=== PATIENT | female | born 1950 | race Two or more races ===

== ENCOUNTER 2019-12-28 09:59 | Emergency (ER) | payer OTHER ==
[~2019-12-28] VITALS: Ht 170.2 cm; Wt 108.9 kg
[2019-12-28] MEDS ORDERED: ACETAMINOPHEN 325 MG TAB PO ONE (10:15)
[2019-12-28 11:13] LABS: Basophils # (auto) 0.1 uL; Basophils % (auto) 0.9 % (0.0-2.0); Eosinophils # (auto) 0 uL; Hemoglobin 14.3 g/dL (12.2-16.2); Lymphocytes # (auto) 0.5 uL; Lymphocytes % (auto) 3.8 % (10.0-50.0); Mean Corpuscular Hemoglobin 28.4 pg (28.0-32.0); Mean Corpuscular Hgb Conc. 33.4 g/dL (32.0-36.0); Mean Corpuscular Volume 85.2 fL (80.0-100.0); Monocytes # (auto) 0.4 uL; Monocytes % (auto) 3.4 % (0.0-12.0); Neutrophils % (auto) 91.9 % (37.0-80.0); Nucleated Red Blood Cells % 0.1 %; Platelet Count (auto) 234 10^3/uL (140-450); Red Blood Cells 5.05 10^6/uL (4.0-5.20); Red Cell Distribution Width 16.2 % (11.8-14.3)
[2019-12-28 11:39] LABS: Albumin 3.5 g/dL (3.4-5.0); Anion Gap 11 (5-15); Blood Urea Nitrogen 23 mg/dL (7-18); Calcium 9.9 mg/dL (8.5-10.1); Carbon Dioxide 21 mmol/L (21-32); Chloride 106 mmol/L (98-107); Glucose 139 mg/dL (74-106); Potassium 4.4 mmol/L (3.5-5.1); Sodium 138 mmol/L (136-145)
[2019-12-28 11:45] LABS: Alanine Aminotransferase 34 U/L (13-56); Alkaline Phosphatase 75 U/L (45-117); Aspartate Aminotransferase 31 U/L (15-37); Bilirubin, Total 0.7 mg/dL (0.2-1.0); GFR African American 50 mL/min; GFR Non-African American 41 mL/min; Total Protein 8.5 g/dL (6.4-8.2)
[2019-12-28] MEDS ORDERED: SODIUM CHLORIDE 0.9% 1,000 ML IV ONE ×2 (12:34)
[2019-12-28] MEDS ORDERED: cefTRIAXone 1GM/50ML D5W 50 ML IV ONE (12:45)
[2019-12-28] MEDS ORDERED: KETOROLAC TROMETH 15 mg/ml 1ML VL IV ONE (16:45)
[2019-12-28] MEDS ORDERED: HYDROcodone-ACET 10/325MG TAB PO ONE (19:45)
[2019-12-28 20:33] VITALS: BP 131/50
== END 2019-12-28 20:52 | disposition short-term general hospital (02) ==
LOC: ER 09:59 → EDBD 09:59 → ER 20:52
DX: N12 Tubulo-interstitial nephritis, not specified as acute or chronic (principal); D72.829 Elevated white blood cell count, unspecified; I10 Essential (primary) hypertension; Z88.2 Allergy status to sulfonamides
CPT/HCPCS: 36415; 71045; 80053; 84484; 85025; 93005; 96365; 96375; 99284; J0696; J1885